=== PATIENT | male | born 1965 | race Caucasian/White ===

== ENCOUNTER 2021-11-16 10:23 | Observation (INO) | payer BC ==
--- OUTSIDE RECORDS SUMMARY | 2021-11-16 10:26 | XMS REPORT | Continuity of Care Document ---
:1965 Author Organization [facility] t Address [address] [place] [address] [address] [place] [address] Care Team Providers Name Role Phone Franklin PETERS Attending Clinician Payers Payer Name Policy Type Policy Number Effective Date Expiration Date S ource Problems Condition Condition Condition Status Onset Resolution Last Treating Co mments Source Name Details Category Date Date Treatment Clinician Date Elevated Elevated Disease Active [facility] r coronary coronary 10-13 [facility] artery artery 00:00: of calcium calcium 00 Medicin score [CAC score [CAC e score 31 score 31 age 55] age 55] Mixed Mixed Disease Active [facility] hyperlipid hyperlipid - Co llege emia emia 00:00: of 00 Medicin e Hypertrigl Hypertrigl Disease Active [facility] yceridemia yceridemia 10-13 [facility]lege 00:00: of 00 Medicin e Primary Primary Disease Active [facility] hypertensi hypertensi 10-13 [facility] on on 00:00: of 00 Medicin e Impaired Impaired Disease Active [facility] r fasting fasting 10-13 [place] glucose glucose 00:00: of 00 Medicin e Allergies, Adverse Reactions, Alerts This patient has no known allergies or adverse reactions. Social History Social Habit Start Date Stop Date Quantity Comments Source Exposure to Not sure [facility] Tiffanie leary SARS-CoV-2 of Medicine (event) Tobacco use and 2020-10-14 2020-10-14 User of smokeless [facility] exposure 00:00:00 00:00:00 tobacco of Medicine Sex Ass[birth year] At [birth year] M [facility] 00:00:00 00:00:00 of Medicine Smoking Status Start Date Stop Date Source Never smoked tobacco [facility] ege of Medicine Medications Ordered Filled Start Stop Current Ordering Indication Dosage Frequency Signature Comments Components Source Medication Medication Date Date Medication? Clinician (SIG) Name Name Icosapent Yes 2{capsu Take 2 [facility] Ethyl 1 g 6-21 le} Capsules Colleg e CAPS 10:14: by mouth of 03 two times Medicin daily. e amlodipine- Yes 1{capsu Take 1 [facility] benazepril 6-21 le} capsule by Col lege (LOTREL) 10:14: mouth of 5-20 MG per 03 daily. Medici n capsule e omeprazole Yes 40mg Take 40 mg [facility] (PRILOSEC) 6-21 by mouth Colle ge 40 MG 10:14: daily. of capsule 03 Medicin e rosuvastati 2021- No 10mg Take 10 mg Desean n (CRESTOR) 6-21 06-21 by mouth Col lege 10 MG 10:13: 00:00 daily. of tablet 10 :00 Medicin e gemfibrozil 2021- No 600mg Take 600 [facility] (LOPID) 600 -21 06-21 mg by Colleg e MG tablet 10:13: 00:00 mouth two of 07 :00 times Medicin daily. e levothyroxi Yes 1 TABLET [facility] ne 5-06 BY MOUTH College (SYNTHROID) 00:00: DAILY, 30 o f 50 MCG 00 MINUTES Medicin tablet BEFORE e BREAKFAST rosuvastati 2020-04 Yes 20mg Take 1 [facility] (CRESTOR) 1-10 Tablet by Col lege 20 MG 00:00: mouth of tablet 00 daily. Medicin e fenofibrate 2020-04 Yes 145mg Take 1 [facility] (TRICOR) 1-10 Tablet by Colleg e 145 MG 00:00: mouth of tablet 00 daily. Medicin e Icosapent Yes 2{capsu Take 2 [facility] Ethyl 1 g 6-22 le} Capsules Colleg e CAPS 10:30: by mouth of 04 two times Medicin daily. e amlodipine- Yes 1{capsu Take 1 [facility] benazepril 6-22 le} capsule by Col lege (LOTREL) 10:30: mouth of 5-20 MG per 04 daily. Medici n capsule e omeprazole Yes 40mg Take 40 mg [facility] (PRILOSEC) 6-22 by mouth Colle ge 40 MG 10:30: daily. of capsule 04 Medicin e gemfibrozil Yes 600mg Take 600 [facility] (LOPID) 600 6-22 mg by College MG tablet 10:30: mouth two of 04 times Medicin daily. e rosuvastati Yes 10mg Take 10 mg [facility] n (CRESTOR) 6-22 by mouth [facility] ege 10 MG 10:30: daily. of tablet 04 Medicin e fenofibrate Yes 145mg Take 1 [facility] (TRICOR) 6-22 Tablet by Colleg e 145 MG 00:00: mouth of tablet 00 daily. Medicin e rosuvastati Yes 20mg Take 1 [facility] (CRESTOR) 6-22 Tablet by Col lege 20 MG 00:00: mouth of tablet 00 daily. Medicin e Vital Signs Vital Name Observation Time Observation Value Comments Source Systolic blood 2021-10-13 15:10:00 133 mm[Hg] [facility] pressure Medicine Diastolic blood 2021-10-13 15:10:00 83 mm[Hg] [facility] Medicine Heart rate 2021-10-13 15:10:00 74 /min [facility] Body height 2021-10-13 15:10:00 176.5 cm [facility] Body weight 2021-10-13 15:10:00 102.059 kg [facility] BMI 2021-10-13 15:10:00 32.75 kg/m2 [facility] Systolic blood 2020-10-14 15:21:00 125 mm[Hg] [facility] pressure Medicine Diastolic blood 2020-10-14 15:21:00 81 mm[Hg] [facility] Medicine Heart rate 2020-10-14 15:21:00 66 /min [facility] Body temperature 2020-10-14 15:21:00 36.22 [facility] Body height 2020-10-14 15:21:00 175.3 cm [facility] Body weight 2020-10-14 15:21:00 97.523 kg [facility] BMI 2020-10-14 15:21:00 31.75 kg/m2 [facility] Procedures This patient has no known procedures. Plan of Care Planned Activity Planned Date Details Comments Source Future Scheduled 2021-10-17 Screening for malignant [facility] Test 19:34:57 neoplasm of colon of Medicin e (procedure) [code = 990385534] Future Scheduled 2021-10-17 COVID-19 Vaccine (#1) [facility] Test 19:34:57 [code = COVID-19 of Medicine Vaccine (#1)] Future Scheduled 2021-10-17 TETANUS SHOT (ADULT) [facility] Test 19:34:57 [code = TETANUS SHOT of Medi cine (ADULT)] Future Scheduled 2021-10-17 BMI FOLLOW UP PLAN [facility] Test 19:34:57 [code = BMI FOLLOW UP of Med icine PLAN] Future Scheduled 2021-10-17 Hepatitis C screening [facility] Test 19:34:57 (procedure) [code = of Medic ine [id number]] Future Scheduled 2021-10-17 Human immunodeficiency B [facility] Test 19:34:57 virus screening of Medicine (procedure) [code = 930606824] Future Scheduled 2021-10-17 ZOSTER VACCINE (1 of 2) [facility] Test 19:34:57 [code = ZOSTER VACCINE of Me dicine (1 of 2)] Future Scheduled 2021-10-17 FLU VACCINE > 6 MONTHS B [facility] Test 19:34:57 [code = FLU VACCINE > 6 of M edicine MONTHS] Future Scheduled 2021-10-13 LIPID PANEL [code = Ordered: [facility] Test 11:00:09 94702-9] 10/13/2021 of Medicine Future Scheduled 2021-10-13 HEMOGLOBIN A1C [code = Ordered: B [facility] Test 11:00:09 4548-4] 10/13/2021 of Medicine Future Scheduled 2021-10-13 COMPREHENSIVE METABOLIC Ordered: [facility] Test 11:00:09 PANEL [code = 79478-8] 10/13/2021 of Me dicine Future Scheduled 2020-10-17 Screening for malignant [facility] Test 15:56:57 neoplasm of colon of Medicin e (procedure) [code = 767850251] Future Scheduled 2020-10-17 COVID-19 Vaccine (1) [facility] Test 15:56:57 [code = COVID-19 of Medicine Vaccine (1)] Future Scheduled 2020-10-17 TETANUS SHOT (ADULT) [facility] Test 15:56:57 [code = TETANUS SHOT of Medi cine (ADULT)] Future Scheduled 2020-10-17 BMI FOLLOW UP PLAN [employer] [employer] Test 15:56:57 [code = BMI FOLLOW UP of Med icine PLAN] Future Scheduled 2020-10-17 Hepatitis C screening [facility] Test 15:56:57 (procedure) [code = of Medic ine 435142059] Future Scheduled 2020-10-17 Human immunodeficiency B [facility] Test 15:56:57 virus screening of Medicine (procedure) [code = 751018661] Future Scheduled 2020-10-17 ZOSTER VACCINE (1 of 2) [facility] Test 15:56:57 [code = ZOSTER VACCINE of Me dicine (1 of 2)] Future Scheduled 2020-10-17 FLU VACCINE > 6 MONTHS B [facility] Test 15:56:57 [code = FLU VACCINE > 6 of M edicine MONTHS] Future Scheduled 2020-10-14 COMPREHENSIVE METABOLIC Ordered: [facility] Test 11:27:23 PANEL [code = 79518-3] 10/14/2020 of Me dicine Future Scheduled 2020-10-14 LIPID PANEL [code = Ordered: [facility] Test 11:27:23 97834-0] 10/14/2020 of Medicine Encounters Start End Encounter Admission Attending Care Care Encounter Source Date/Time Date/Time Type Type Clinicians Facility Department ID 2021-10-13 2021-10-13 Office KAMILA Lawson [id number] [facility] 10:00:00 11:15:01 Visit Cindi AMBULATOR [id number] College Y [id number] of [id number] Medi leo 310 e 2020-10-14 2020-10-14 Office KAMILA Lawson [id number] [facility] 09:41:33 11:44:24 Visit Cindi AMBULATOR [id number] College Y [id number] [facility] 310 e 2020-10-14 2020-10-14 [facility] [id number] [place] 00:00:00 00:00:00 CINDI [address] Results This patient has no known results.
[2021-11-16] MEDS ORDERED: MORPHINE 4 MG/ML SYR ONE ×2 (11:02→17:04)
[2021-11-16] MEDS ORDERED: KETOROLAC 30 MG/ML INJ ONE (11:03)
[2021-11-16] MEDS ORDERED: NA CHLORIDE 0.9% 1,000 ML ONE (11:03)
[2021-11-16] MEDS ORDERED: ONDANSETRON 4 MG/2 ML VIAL ONE ×2 (11:03→17:04)
[2021-11-16] MEDS ORDERED: NA CHLORIDE 0.9% 50 ML ONE (11:03)
[2021-11-16] MEDS ORDERED: TAMSULOSIN 0.4 MG SR CAP ONE (11:03)
[2021-11-16] MEDS ORDERED: CEFTRIAXONE 1000 MG/VIAL ONE (11:03)
[2021-11-16 11:13] LABS: Absolute Lymphocytes (CBC) 1.3 K/uL (0.7-4.9); Lymphocytes % 20.2 % (15.3-44.8); MCV 92.4 fL (80-100); MPV 8.6 fL (7.6-11.3); RBC Red Blood Cell Count 4.65 M/uL (4.33-5.43)
--- NOTE | 2021-11-16 11:25 | RAD REPORT ---
EXAM DESCRIPTION: CT - Stone Protocol - 11/16/2021 11:05 am CLINICAL HISTORY: Flank pain, kidney stone suspected COMPARISON: No comparisons TECHNIQUE: Axial 3 mm thick images were obtained without oral or IV contrast. The [id number] span s the entirety of the system including uppermost abdomen and lung bases. All CT scans are performed using dose optimization technique as appropriate and may include automated exposure control or mA/KV adjustment according to patient size. FINDINGS: Moderate left-sided hydronephrosis is present to the mid ureter level where there is a 12 x 8 mm calcification. From a KUB projection this stone is at the level of the L4-5 disc space. Patieleni t also has a 12 millimeter x 8 millimeter calcification in the mid kidney calyx. No other left-sided calcifications. No right-sided hydronephrosis or calcifications. No suspicious renal masses. Isodense masses and pyelonephritis are not excluded on a stone protocol CT scan. No significant adrenal findi ng. No urinary bladder suspicious finding. Prostate calcifications are present. Imaged portions of the liver, spleen and pancreas show no suspicious findings on non-contrast imaging . No gallbladder or biliary tree abnormality identified. No suspicious bowel findings. Appendix is normal. No active GI process seen. Small 12 mm fat only umbilical hernia is present. Patient has a moderate size fat only left inguinal hernia No free air, free fluid or pneumatosis. No significant edema or stranding in the left perineph radha fat. No significant bony abnormality. IMPRESSION: Moderate left-sided hydronephrosis down to the mid ureter level secondary to a 12 x 8 mm obstructing calculus. Nonobstructing 12 x 8 mm calcification lateral mid left kidney. Isodense masses and pyelonephritis are not excluded on stone protocol technique.
[2021-11-16 11:28] LABS: Albumin 4.7 g/dL (3.4-5.0); Bilirubin Total 0.3 mg/dL (0.2-1.0); Potassium 4.4 mmol/L (3.5-5.1)
--- NOTE | 2021-11-16 13:02 | ER ---
Nurse's Notes [facility] Name: Castro Baires Age: 56 yrs Sex: Male : 1965 Arrival Date: 11/16/2021 Time: 10:25 Bed 17 Private MD: Diagnosis: Hydronephrosis with renal and ureteral calculous obstruction-12x8 mm left mid obstructing calculi Presentation: 11/16 10:32 Chief complaint: Patient states: he believes he has kidney stones, as he has a recent ap3 history of stones. patient is reporting left flank pain that radiates to the front of his abdomen. patient denies any difficulty urinating. Coronavirus screen: At this time, the client does not indicate any symptoms associated with coronavirus-19. Ebola Screen: No symptoms or risks identified at this time. Initial Sepsis Screen: Does the patient meet any 2 criteria? No. Patient's initial sepsis screen is negative. Does the patient have a suspected source of infection? No. Patient's initial sepsis screen is negative. Risk Assessment: Do you want to hurt yourself or someone else? Patient reports no desire to harm self or others. Onset of symptoms was November 15, 2021. 10:32 Method Of Arrival: Ambulatory ap3 10:32 Acuity: CAROLE 3 ap3 Triage Assessment: 10:38 General: Appears uncomfortable, Behavior is calm, cooperative. Pain: Complains of pain ap3 in right low back Pain radiates to abdomen Pain currently is 7 out of 10 on a pain scale. Quality of pain is described as stabbing, Pain began gradually. Neuro: Level of Consciousness is awake, alert, obeys commands, Oriented to person, place, time. Cardiovascular: Patient's skin is warm and dry. Respiratory: Airway is patent Respiratory effort is even, unlabored. GI: Patient currently denies nausea, vomiting. : Reports pain in left flank(s). Historical: - Allergies: 10:35 No Known Allergies; ap3 - Home Meds: 10:35 amlodipine oral [Active]; Vascepa oral [Active]; fenofibrate oral [Active]; Omeprazole ap3 Oral [Active]; rosuvastatin oral [Active]; amlodipine oral [Active]; levothyroxine oral [Active]; - PMHx: 10:35 Hypertensive disorder; Hypercholesterolemia; ap3 - Social history:: Smoking status: Patient reports use of chewing tobacco. Patient uses alcohol, occasionally. - Family history:: not pertinent. Screenin:39 Abuse screen: Denies threats or abuse. Nutritional screening: No deficits noted. ap3 Tuberculosis screening: No symptoms or risk factors identified. 11:56 Fall Risk None identified. jg9 Assessment: 11:00 GI: Bowel sounds present X 4 quads. Abd is soft X 4 quads Abdomen is tender to jg9 palpation in posterior aspect of right lateral abdomen, left upper quadrant and left lower quadrant. Vital Signs: 10:30 BP 156 / 96; Pulse 70; Resp 17 S; Pulse Ox 95% on R/A; Pain 9/10; jg9 10:32 BP 150 / 100; Pulse 73; Resp 19; Temp 97.8; Pulse Ox 100% ; Weight 102.06 kg; Height 5 ap3 ft. 9 in. (175.26 cm); Pain 7/10; 10:45 BP 150 / 92; Pulse 74; Resp 17 S; Pulse Ox 96% on R/A; Pain 4/10; jg9 11:50 BP 129 / 84; Pulse 55; Resp 14 S; Pulse Ox 100% on R/A; Pain 4/10; jg9 12:45 BP 139 / 84; Pulse 55; Resp 12 S; Pulse Ox 98% on R/A; Pain 4/10; jg9 10:32 Body Mass Index 33.23 (102.06 kg, 175.26 cm) ap3 ED Course: 10:25 Patient arrived in ED. rg4 10:35 Triage completed. ap3 10:39 Victor Manuel Ferris MD is Attending Physician. lamont 10:39 Arm band placed on right wrist. ap3 10:49 Mi Packer, KRISHNA is Primary Nurse. jg9 10:55 Inserted saline lock: 18 gauge in right antecubital area, using aseptic technique. jg9 Blood collected. 11:07 CT Stone Protocol In Process Unspecified. EDMS 11:13 Patient has correct armband on for positive identification. Bed in low position. Call jg9 light in reach. Side rails up X 1. 13:01 Urban Rivers MD is Hospitalizing Provider. lamont Administered Medications: 11:00 Drug: Zofran (Ondansetron) 4 mg Route: IVP; Site: right antecubital; j9 11:57 Follow up: Response: No adverse reaction; Nausea is decreased 9 11:00 Drug: morphine 4 mg Route: IVP; Infused Over: 4 mins; Site: right antecubital; jg9 11:30 Follow up: Response: No adverse reaction; Marked relief of symptoms; Pain is decreased j9 11:02 Drug: Ketorolac 30 mg Route: IVP; Site: right antecubital; jg9 11:30 Follow up: Response: No adverse reaction; Marked relief of symptoms; Pain is decreased j9 11:25 Drug: Flomax (tamsulosin) 0.4 mg Route: PO; g 11:58 Follow up: Response: No adverse reaction 11:28 Drug: NS 0.9% 1000 ml Route: IV; Rate: 1 bolus; Site: right antecubital; jg9 13:00 Follow up: IV Status: Completed infusion; IV Intake: 1000ml 9 11:28 Drug: Rocephin (cefTRIAXone) 1 grams Route: IV; Rate: per protocol; Site: right [facility] antecubital; 12:59 Follow up: IV Status: Completed infusion; IV Intake: 50ml g9 Intake: 12:59 IV: 50ml; Total: 50ml. g9 13:00 IV: 1000ml; Total: 1050ml. jg9 Outcome: 13:01 Decision to Hospitalize by Provider. lamont 21:16 Patient left the ED. lp1 Signatures: Dispatcher [employer] EDMS Victor Manuel Ferris MD MD cha Pena, Laura RN RN lp1 Crystal Solis4 Sheila Castillo RN RN ap3 Mi Packer RN RN jg9 Corrections: (The following items were deleted from the chart) 12:58 11:50 BP 129 / 84; Pulse 55bpm; Resp 14bpm; Spontaneous; Pulse Ox 100% RA; jg9 jg9
--- NOTE | 2021-11-16 13:03 | EDPHYS ---
Physician Documentation [facility] Name: Castro Baires Age: 56 yrs Sex: Male : 1965 Arrival Date: 11/16/2021 Time: 10: Bed 17 Private MD: Victor Manuel Woods HPI: 11/16 12:57 This 56 yrs old Male presents to ER via Ambulatory with complaints of lamont Possible Kidney Stone. 12:57 The patient presents with abdominal pain in the lower abdomen, in the left lower lamont quadrant. Onset: The symptoms/episode began/occurred 2 day(s) ago. The patient complains of pain in the left low back and left mid back. The pain radiates to the left low back and left mid back. Onset: The symptoms/episode began/occurred 2 day(s) ago. Modifying factors: The symptoms are alleviated by nothing. the symptoms are aggravated by nothing. Associated signs and symptoms: The patient has no apparent associated signs or symptoms. The symptoms do not radiate. The symptoms are described as sharp. Historical: - Allergies: 10:35 No Known Allergies; ap3 - Home Meds: 10:35 amlodipine oral [Active]; Vascepa oral [Active]; fenofibrate oral [Active]; Omeprazole ap3 Oral [Active]; rosuvastatin oral [Active]; amlodipine oral [Active]; levothyroxine oral [Active]; - PMHx: 10:35 Hypertensive disorder; Hypercholesterolemia; ap3 - Social history:: Smoking status: Patient reports use of chewing tobacco. Patient uses alcohol, occasionally. - Family history:: not pertinent. ROS: 12:57 Constitutional: Negative for fever, chills, and weight loss, Eyes: Negative for injury, lamont pain, redness, and discharge, ENT: Negative for injury, pain, and discharge, Neck: Negative for injury, pain, and swelling, Cardiovascular: Negative for chest pain, palpitations, and edema, Respiratory: Negative for shortness of breath, cough, wheezing, and pleuritic chest pain, : Negative for injury, bleeding, discharge, and swelling, MS/Extremity: Negative for injury and deformity, Skin: Negative for injury, rash, and discoloration, Neuro: Negative for headache, weakness, numbness, tingling, and seizure, Psych: Negative for depression, anxiety, suicide ideation, homicidal ideation, and hallucinations, Allergy/Immunology: Negative for hives, rash, and allergies, Endocrine: Negative for neck swelling, polydipsia, polyuria, polyphagia, and marked weight changes, Hematologic/Lymphatic: Negative for swollen nodes, abnormal bleeding, and unusual bruising. 12:57 Abdomen/GI: Positive for abdominal pain, of the anterior aspect of left lateral abdomen, posterior aspect of left lateral abdomen, left upper quadrant and left lower quadrant. Exam: 12:57 Constitutional: This is a well developed, well nourished patient who is awake, alert, lamont and in no acute distress. Head/Face: Normocephalic, atraumatic. Eyes: Pupils equal round and reactive to light, extra-ocular motions intact. Lids and lashes normal. Conjunctiva and sclera are non-icteric and not injected. Cornea within normal limits. Periorbital areas with no swelling, redness, or edema. ENT: Nares patent. No nasal discharge, no septal abnormalities noted. Tympanic membranes are normal and external auditory canals are clear. Oropharynx with no redness, swelling, or masses, exudates, or evidence of obstruction, uvula midline. Mucous membranes moist. Neck: Trachea midline, no thyromegaly or masses palpated, and no cervical lymphadenopathy. Supple, full range of motion without nuchal rigidity, or vertebral point tenderness. No Meningismus. Chest/axilla: Normal chest wall appearance and motion. Nontender with no deformity. No lesions are appreciated. Cardiovascular: Regular rate and rhythm with a normal S1 and S2. No gallops, murmurs, or rubs. Normal PMI, no JVD. No pulse deficits. Respiratory: Lungs have equal breath sounds bilaterally, clear to auscultation and percussion. No rales, rhonchi or wheezes noted. No increased work of breathing, no retractions or nasal flaring. Abdomen/GI: Soft, non-tender, with normal bowel sounds. No distension or tympany. No guarding or rebound. No evidence of tenderness throughout. Male : Normal genitalia with no discharge or lesions. Skin: Warm, dry with normal turgor. Normal color with no rashes, no lesions, and no evidence of cellulitis. MS/ Extremity: Pulses equal, no cyanosis. Neurovascular intact. Full, normal range of motion. Neuro: Awake and alert, GCS 15, oriented to person, place, time, and situation. Cranial nerves II-XII grossly intact. Motor strength 5/5 in all extremities. Sensory grossly intact. Cerebellar exam normal. Normal gait. Psych: Awake, alert, with orientation to person, place and time. Behavior, mood, and affect are within normal limits. 12:57 Back: pain, that is mild, ROM is normal, normal spinal alignment noted, CVA tenderness, that is mild, is noted on the left. Vital Signs: 10:30 BP 156 / 96; Pulse 70; Resp 17 S; Pulse Ox 95% on R/A; Pain 9/10; jg9 10:32 BP 150 / 100; Pulse 73; Resp 19; Temp 97.8; Pulse Ox 100% ; Weight 102.06 kg; Height 5 ap3 ft. 9 in. (175.26 cm); Pain 7/10; 10:45 BP 150 / 92; Pulse 74; Resp 17 S; Pulse Ox 96% on R/A; Pain 4/10; jg9 11:50 BP 129 / 84; Pulse 55; Resp 14 S; Pulse Ox 100% on R/A; Pain 4/10; jg9 12:45 BP 139 / 84; Pulse 55; Resp 12 S; Pulse Ox 98% on R/A; Pain 4/10; jg9 10:32 Body Mass Index 33.23 (102.06 kg, 175.26 cm) ap3 MDM: 10:39 Patient medically screened. [facility] 11/16 10:45 Order name: CBC with Diff; Complete Time: 11:39 [facility] 11/16 10:45 Order name: CMP; Complete Time: 11:39 [facility] 11/16 10:45 Order name: Lipase; Complete Time: 11:39 [facility] 11/16 10:45 Order name: Urine Culture [facility] 11/16 12:40 Order name: SARS RAPID bd 11/16 13:06 Order name: Urine Dipstick-Ancillary [facility] 11/16 13:13 Order name: Basic Metabolic Panel [facility] 11/16 13:13 Order name: Basic Metabolic Panel [facility] 11/16 13:13 Order name: CBC with Automated Diff [facility] 11/16 13:13 Order name: CBC with Automated Diff [facility] 11/16 13:13 Order name: Lipase [facility] 11/16 13:13 Order name: Lipase [facility] 11/16 13:13 Order name: Liver (Hepatic) Function [facility] 11/16 13:13 Order name: Liver (Hepatic) Function [facility] 11/16 10:45 Order name: IV Saline Lock; Complete Time: 11:13 [facility] 11/16 10:45 Order name: Labs collected and sent; Complete Time: 11:13 [facility] 11/16 10:45 Order name: CT Stone Protocol; Complete Time: 11:39 [facility] 11/16 13:00 Order name: Chest Single View XRAY [facility] 11/16 13:00 Order name: EKG; Complete Time: 13:01 [facility] 11/16 13:00 Order name: EKG - Nurse/Tech [facility] 11/16 13:13 Order name: CONS Physician Consult [facility] 11/16 13:13 Order name: NPO [facility] 11/16 14:26 Order name: RAD [facility] Administered Medications: 11:00 Drug: Zofran (Ondansetron) 4 mg Route: IVP; Site: right antecubital; jg9 11:57 Follow up: Response: No adverse reaction; Nausea is decreased j9 11:00 Drug: morphine 4 mg Route: IVP; Infused Over: 4 mins; Site: right antecubital; jg9 11:30 Follow up: Response: No adverse reaction; Marked relief of symptoms; Pain is decreased j9 11:02 Drug: Ketorolac 30 mg Route: IVP; Site: right antecubital; jg9 11:30 Follow up: Response: No adverse reaction; Marked relief of symptoms; Pain is decreased j9 11:25 Drug: Flomax (tamsulosin) 0.4 mg Route: PO; jg9 11:58 Follow up: Response: No adverse reaction jg9 11:28 Drug: NS 0.9% 1000 ml Route: IV; Rate: 1 bolus; Site: right antecubital; jg9 13:00 Follow up: IV Status: Completed infusion; IV Intake: 1000ml jg9 11:28 Drug: Rocephin (cefTRIAXone) 1 grams Route: IV; Rate: per protocol; Site: right jg9 antecubital; 12:59 Follow up: IV Status: Completed infusion; IV Intake: 50ml jg9 Disposition Summary: 11/16/21 13:01 Hospitalization Ordered Hospitalization Status: Observation lamont Provider: Rivers, A lamont Location: Telemetry/MedSurg (observation) lamont Condition: Stable lamont Problem: new lamont Symptoms: have improved lamont Bed/Room Type: Standard lamont Room Assignment: 230(11/16/21 19:57) cg Diagnosis - Hydronephrosis with renal and ureteral calculous obstruction - 12x8 mm left mid lamont obstructing calculi Forms: - Medication Reconciliation Form lamont - SBAR form lamont Signatures: Dispatcher [employer] Victor Manuel Medina MD MD cha Garcia, Cindy RN RN Sheila Lee RN RN ap3 Mi Packer RN RN jg9 Corrections: (The following items were deleted from the chart) 19:57 13:01 lamont cg
[2021-11-16 13:05] LABS: Urine Specific Gravity 1.015 (1.005-1.030)
[2021-11-16 13:06] LABS: Urine Blood 1+ (Negative); Urine Glucose Negative (Negative); Urine Protein Negative (Negative); Urine pH 5.5 (5.0-7.0)
[2021-11-16] MEDS ORDERED: ONDANSETRON 4 MG/2 ML VIAL IV PRN (13:06)
[2021-11-16] MEDS ORDERED: ACETAMINOPHEN 325 MG TABLET PO PRN (13:06)
[2021-11-16] MEDS: Ringers Lactate 1,000 ML IV SCH (14:00)
--- NOTE | 2021-11-16 14:25 | RAD REPORT ---
EXAM DESCRIPTION: RAD - Chest Single View - 11/16/2021 1:45 pm CLINICAL HISTORY: COUGH COMPARISON: None TECHNIQUE: AP portable chest image was obtained 11/16/2021 1:45 pm . FINDINGS: Lung volumes are low. No acute lung parenchymal process seen. Heart and vasculature are no rmal. No measurable pleural effusion and no pneumothorax. No acute bony abnormality seen. No acute ao rtic findings suspected. IMPRESSION: No acute cardiopulmonary process.
[2021-11-16 14:55] LABS: SARS-CoV-2 Antigen Rapid Res Negative (Negative)
[2021-11-16] MEDS: MORPHINE 4 MG/ML SYR IV PRN (17:04)
[2021-11-16] MEDS ORDERED: Ringers Lactate 1,000 ML IV ONE (17:07)
[2021-11-16 18:00] VITALS: BMI 33.2
[2021-11-16] MEDS: TAMSULOSIN 0.4 MG SR CAP PO SCH (22:42)
[2021-11-17] MEDS: Ringers Lactate 1,000 ML IV SCH ×3 (04:29→18:07)
--- NOTE | 2021-11-17 05:52 | HP ---
Date of Admission: 11/16/2021 Chief Complaint: Abdominal pain. History Of Present Illness: This is a 56-year-old very pleasant male patient who was doing fine in h is normal usual state of health until last night, started to have left-sided abdominal pain. After a while, his pain got better so he was able to go to sleep and when he woke up this morning he started to have this abdominal pain in the left lower quadrant and then he started to have pain in the left lateral and left posterior flank region. He denies any fever, chills, nausea, vomiting. No dysuria. No hematuria. No fever. No chills. With this worsening pain, he came into ER and after he was ev aluated he was admitted to the hospital with left-sided kidney stone and also stone in his left urete r with hydronephrosis. The patient received pain medication in the emergency room so when I saw him in the ER this evening, he was comfortable. Urology consultation from Dr. Colorado has been requested . Allergies: NO KNOWN ALLERGIES. Medications: Amlodipine/benazepril 5/20 mg 1 capsule daily, fenofibrate 145 mg daily, fluticasone na alvin spray 2 spray each nostril 2 times a day, Vascepa 1000 mg takes 2 capsules 2 times a day, levocet irizine 5 mg daily at bedtime, levothyroxine 50 mcg daily, omeprazole 40 mg daily, rosuvastatin 40 mg daily. Review of Systems: GI: As mentioned above. Genitourinary: As mentioned above. All other systems reviewed and negative. Past Medical History: Significant for hypothyroidism, hypertension, mixed hyperlipidemia, gastroesop hageal reflux disease, and gout. Past Surgical History: Hernia repair and right arm surgery. Family History: Father , had coronary artery disease, hypertension, diabetes, hyperlipidemia, an d Waldenstrom's macroglobulinemia. Mother has hypertension, diabetes, and hyperlipidemia. Brother h as diabetes. Sister with hyperlipidemia. Social History: Significant for and use of alcohol, 1 or 2 beers . Physical Examination: Vital Signs: Height 5 feet 9 inches, weight 225 pounds, temperature , pulse , re spiratory rate , blood pressure , oxygen saturation . General: Awake, alert, oriented, not in distress. HEENT: Head atraumatic, normocephalic. Conjunctivae nonerythematous. Sclerae white. Mouth, no thr ush or edema noted. Ears/Nose, no mass, lesion, discharge noted. Neck: Supple. No JVD, lymph nodes, bruit, thyromegaly noted. Lungs: Bilateral good equal air entry. Clear to auscultation. No rhonchi. No rales. Heart: Normal heart sounds, no murmur or gallop. Abdomen: Soft, bowel sounds normal. No guarding, rigidity, tenderness, mass, hepatosplenomegaly, dis tention, or bruit noted. Extremities: No leg edema. No calf tenderness. Skin: No rash, ulcer, cellulitis. Lymphatics: No lymph node enlargement in neck, supraclavicular, infraclavicular region. Neuro: No focal neurological deficit. Chest: Unremarkable. External Genitalia: Deferred. Rectal: Deferred. Laboratory Data: White count 6.3, hemoglobin 14.6, platelets 236. Sodium 136, potassium 4.4, chlori de 107, bicarb 24, BUN 22, creatinine 1.30, glucose 108. Liver function tests unremarkable. Lipase 155. COVID-19 test negative. Urinalysis 1+ blood, otherwise negative. CAT scan of the abdomen per kidney stone protocol shows moderate left-sided hydronephrosis with 12 x 8 mm stone in the left mid u reter causing obstruction and there is a known obstructing 12 x 8 mm stone in the mid left kidney. C hest x-ray unremarkable. Impression: 1.Left ureteric stone with hydronephrosis. 2.Left kidney stone. 3.Hypertension. 4.Mixed hyperlipidemia. 5.Gastroesophageal reflux disease. 6.Hypothyroidism. Plan: We will go ahead and admit the patient to hospital for further evaluation and management of th is problem. The patient is appropriate for inpatient and is expected to spend 2 midnights in the [facility]. We will order SCD for DVT prophylaxis. Continue IV fluid. Continue pain medication and empi radha antibiotics per order. Urologist, Dr. Colorado, was consulted from emergency room. We will keep the patient n.p.o. after midnight for surgical intervention that Dr. Colorado might plan to do it danuat rrow morning and details and plan of treatment discussed with the patient. I will see him tomorrow m orning for followup. ORI/EL Voice ID: [id number]
[2021-11-17 06:02] LABS: Absolute Lymphocytes (CBC) 1.3 K/uL (0.7-4.9); Hematocrit 37.9 % (39.6-49.0); Lymphocytes % 28.3 % (15.3-44.8); MCV 92.1 fL (80-100); MPV 8.3 fL (7.6-11.3); RBC Red Blood Cell Count 4.12 M/uL (4.33-5.43)
[2021-11-17 06:17] LABS: Albumin 3.7 g/dL (3.4-5.0); Bilirubin Direct 0.1 mg/dL (0-0.2); Bilirubin Total 0.3 mg/dL (0.2-1.0); Potassium 4.5 mmol/L (3.5-5.1); Protein, Total 6.5 g/dL (6.4-8.2)
[2021-11-17] MEDS ORDERED: PANTOPRAZOLE 40MG TABLET PO SCH (06:30)
[2021-11-17] MEDS ORDERED: LEVOTHYROXINE SOD 0.05 MG TABLET PO SCH (06:30)
[2021-11-17] MEDS ORDERED: CEFTRIAXONE 1000 MG/VIAL ONE (08:20)
[2021-11-17] MEDS ORDERED: CEFTRIAXONE 1,000 MG in NA CHLORIDE 0.9% 50 ML IVPB SCH (09:00)
[2021-11-17] MEDS ORDERED: BENAZEPRIL 20 MG TAB PO SCH ×2 (09:00)
[2021-11-17] MEDS ORDERED: AMLODIPINE 5 MG TAB PO SCH ×2 (09:00)
--- NOTE | 2021-11-17 10:53 | P.CNS ---
Date of Consult: 11/17/21 Reason for Consult: left nephroureterolithiasis Requesting Physician: Rian Rivers Chief Complaint: left flank pain History of Present Illness: 56-year-old gentleman with hypertension and hyperlipidemia, who has passed kidney stones on at least 2 prior occasions over the last 10 to 20 years, presents with left flank and left lower quadrant pain that began yesterday. The pain was severe enough that eventually he presented to the emergency department where he was evaluated. He denied any associated fever or chills, and he denied any nausea, vomiting. He also complains of some right flank pain of uncertain etiology. Family history: No history of urologic malignancy Social history: Remote childhood smoking experience Examination: Afebrile and vital signs stable Alert, awake, oriented x3 in no acute distress No dyspnea or sign of respiratory distress Comfortable and well-appearing Abdomen soft, nontender, nondistended No CVA tenderness elicited Lying in hospital bed Review of his laboratory analyses revealed normal white blood count, platelets and creatinine. CT scan reviewed: Approximately 12 mm left nephrolithiasis associated with 9 to 10 mm left mid distal ureterolithiasis and hydroureteronephrosis Assessment and recommendation: 56-year-old gentleman with hypertension and hyperlipidemia, recurrent stone former, now with 9 to 10 mm left mid distal ureterolithiasis causing hydroureteronephrosis and left flank pain associated with an approximately 12 mm and left nephrolithiasis. -Patient admitted and n.p.o. -chest x-ray completed and reviewed -ekg -Recommended cystoscopy and left ureteral stent placement given the stone burden with delayed definitive management. -We will assess for visibility of the stones to see if he may be a potential candidate for ESWL -Will benefit from metabolic stone profile assessment done postoperatively Allergies No Known Allergies Allergy (Verified 11/16/21 16:29) Home Medications: Amlodipine/Atorvastatin [Amlodipine-Atorvast 5-20 mg] 1 tab PO DAILY 11/16/21 Fenofibrate [Tricor*] 145 mg PO DAILY 11/16/21 Icosapent Ethyl [Vascepa] 1 gm PO BID 11/16/21 Levothyroxine Sodium [Levothyroxine] 1 tab PO DAILY 11/16/21 Omeprazole [Prilosec] 40 mg PO DAILY 11/16/21 Rosuvastatin Calcium 20 mg PO DAILY 11/16/21 - Past Medical/Surgical History Diabetic: No -: HTN -: HYPERLIPIDEMIA -: GERD -: HYPOTHYROIDISM -: R BICEP REPAIR -: INGUINAL HERNIA RIGHT - Social History Smoking Status: Former smoker Physical Examination Temp Pulse Resp BP Pulse Ox 98.2 F 75 16 124/74 95 11/17/21 08:00 11/17/21 08:45 11/17/21 08:00 11/17/21 08:45 11/17/21 08:00 Laboratory Data (last 24 hrs) 11/16/21 11:00: Sodium 136, Potassium 4.4, BUN 22 H, Creatinine 1.30, Glucose 108 H, Total Bilirubin 0.3, AST 24, ALT 26, Alkaline Phosphatase 91, Lipase 155 11/16/21 11:00: WBC 6.3, Hgb 14.6, Hct 43.0, Plt Count 233
--- NOTE | 2021-11-17 12:38 | EKG ---
Test Date: 2021-11-16 Test Time: 14:53:36 Plush Dresser: ROSA MEASUREMENT RESULTS: Intervals: Rate: 72 IA: 164 QRSD: 94 QT: 410 QTc: 448 [place]: P: 4 IA: 164 QRS: 50 T: 4 INTERPRETIVE STATEMENTS: Normal sinus rhythm Normal ECG Compared to ECG 03/12/2008 01:48:00 Sinus bradycardia no longer present Electronically Signed On 11-17-21 12:37:08 CDT by Vitor Peralta
[2021-11-17] MEDS ORDERED: Ringers Lactate 1,000 ML IV ONE (14:32)
[2021-11-17] MEDS ORDERED: FENTANYL CITR 100 MCG/2 ML ONE (15:25)
[2021-11-17] MEDS ORDERED: LIDOCAINE 1% MPF 5 ML VIAL ONE (15:25)
[2021-11-17] MEDS ORDERED: MIDAZOLAM HCL 2 MG/2 ML INJ ONE (15:25)
[2021-11-17] MEDS ORDERED: propofoL 200 MG/20 ML VIAL IV ONE (15:25)
[2021-11-17] MEDS ORDERED: dexAMETHasone 10 MG/ML VIAL ONE (16:00)
[2021-11-17] MEDS ORDERED: KETOROLAC 30 MG/ML INJ ONE (16:00)
[2021-11-17] MEDS ORDERED: ONDANSETRON 4 MG/2 ML VIAL ONE (16:00)
--- NOTE | 2021-11-17 16:16 | RAD REPORT ---
EXAM DESCRIPTION: RAD - Urethrocystogrphy Retrograde - 11/17/2021 4:05 pm FINDINGS: There were 6 portable KUB images obtained during fluoroscopic assisted placement of a left ureteral stent. No suspicious or unexpected finding on the submitted images. Fluoro time was 9 seconds.
[2021-11-17] MEDS: MORPHINE 4 MG/ML SYR IV PRN (17:54)
--- NOTE | 2021-11-17 18:46 | P.PN ---
Date of Service: 11/17/21 Postop note and consultation: I met with the patient and his postoperatively in their inpatient room. He expressed having some discomfort associated with a sense of constipation or needing to have a bowel movement. He had just been given a dose of morphine. CT scan reviewed and stones noted to be greater than 1500 Hounsfield units, suggestive of stones potentially too hard for ESWL. Recommendation: Left ureteroscopy with laser lithotripsy and stent exchange -I counseled the patient and his on the recommendation and explained the procedure in detail. I also explained the unique risks of the procedure to include infection/sepsis, ureteral injury, and I discussed the risk of stricture disease, which is more likely associated with impaction of the stone. Other risks of urethral stricture, bleeding and infection were also discussed. I explained that we would typically allow at least 1 to 2 weeks for dilation of the ureter to occur with the presence of the stent before we would plan ureteroscopic intervention. -He will be scheduled accordingly within the coming weeks. My office will contact him to schedule. -Discharge instructions entered, and I recommended the patient and his try to pick out hand her pain medicine before [facility] closes tonight; so this will not be an issue. Approximately 10 to 15 minutes counseling time spent
[2021-11-17] MEDS ORDERED: HYDROCODONE/APAP 5/325 MG TAB PO PRN (18:54)
[2021-11-17] MEDS: TAMSULOSIN 0.4 MG SR CAP PO SCH (20:24)
[2021-11-17 20:37] VITALS: BP 128/74; TEMP 97.8
[2021-11-17 21:31] VITALS: O2SAT 97
--- NOTE | 2021-11-18 08:21 | DS ---
Date of Discharge: 11/17/2021 The patient was seen this morning for followup. No new complaints or problems reported by him. Silvino es any abdominal pain. No nausea. No vomiting. Physical Examination: Vital Signs: Reviewed. HEENT: Unremarkable. Lungs: Clear to auscultation. Heart: Sounds normal. Abdomen: Soft. Bowel sounds normal. No guarding, rigidity, tenderness, distention. Extremities: No leg edema. Laboratory Data: Today; white count 4.6, hemoglobin 13.1, platelets . Sodium 137, potassi um 4.5, chloride 108, bicarb 25, BUN 22, creatinine 1.24, glucose 97. Liver function tests unremarka ble. Lipase 137. Hospital Course: This is 56-year-old pleasant male patient, who was admitted to the hospital with le ft-sided abdominal pain. Please see dictated H and P for more information. The patient came into em ergency room yesterday with abdominal pain and after he was evaluated in the emergency room, he was a dmitted to the hospital with left-sided kidney stone and left-sided ureteric stone causing moderate h ydronephrosis. This stone is 12 x 8 mm in size and it was in the mid ureter causing moderate hydrone phrosis, another stone was of same size in the left kidney. After he came into ER, he was evaluated and admitted to the hospital. Urology consultation was obtained from Dr. Colorado. The patient was k ept n.p.o. after midnight and empiric antibiotics and pain medication were given. He was also starte d on tamsulosin. Today, Dr. Colorado took him to surgery and he did place left ureter stent and perfo rmed lithotripsy and the patient was discharged to go home after the procedure. From Urology point o f view, medically he is stable for discharge. Dr. Colorado did send a prescription for tamsulosin to his pharmacy along with Tylenol with Codeine and this prescription was sent to [facility] in [place] a nd late this evening around 9 p.m., nurse contacted me from the floor that the patient is ready for d ischarge, but unfortunately [facility] in [place] does not have this pain medication, which is Tylenol with Codeine, which was sent by Dr. Colorado and nurses have left a message for Dr. Colorado, but wait ing on the response back from him and the patient wants to go home, but he does not want to go home w ithout pain medications. So, I did send a prescription for Tylenol with Codeine to [facility] after verifying that the patient never picked up or was never able to get prescription for the simila r medication, which was prescribed by Dr. Colorado as that medication was not available at [facility] ___ if it is a controlled substance. [facility] will not be able to get that prescription transferred. So, I have sent a prescription for Tylenol with Codeine #20 tablets, 1 tablet 3 times a day as needed for pain. The patient to have follow up with Dr. Colorado as per his instruction. I will see him next week for followup on Tuesday and the patient will call office for this appointment. The patient was instructed not to drive car or operate any hazardous machines after taking this vikram n medication. Final Diagnoses: 1.Left ureter stone with hydronephrosis. 2.Left kidney stone. 3.Hypertension. 4.Mixed hyperlipidemia. 5.Gastroesophageal reflux disease. ORI/MODL Voice ID: [id number] Report ID: [id number]
--- NOTE | 2021-11-18 08:33 | OP ---
Surgeon: ELIAS CHIU Preoperative Diagnoses: 1.Left nephroureterolithiasis. 2.Left flank pain. 3.Left hydronephrosis. Postoperative Diagnoses: 1.Left nephroureterolithiasis. 2.Left flank pain. 3.Left hydronephrosis. Principal Procedures: 1.Cystoscopy and left retrograde pyelography. 2.Left ureteral stent placement. Indication For Procedure: Mr. Baires presented to the Emergency Department yesterday with pain associa lily with obstruction from a left ureteral calculus. The stone in the ureter was about 9-10 mm and he had an additional larger than 12 mm calculus in the left kidney. As a result, he was counseled on t he need for definitive management of both and recommended for stent placement. I counseled the patie nt that attempt at direct ureteroscopy or ureteroscopic management today would be ill advised, given the large volume of stone burden and the risk of ureteral injury in the process. Also, the likelihoo d of impaction of the stone prohibiting ureteroscopy was high as I had already counseled the patient on the potential need for percutaneous nephrostomy tube placement in 5% of cases. Further, the risks of infection and sepsis, while unlikely here would be minimized by proper preoperative preparation i ncluding culture results. Procedure In Detail: The patient was consented in the preoperative holding area before being transfe rred to operative suite where general anesthesia was induced. He was on ceftriaxone IV antimicrobial prophylaxis and Pneumoboots were provided for DVT prophylaxis. He was placed in the lithotomy posit ion, padded and secured to the table appropriately. His genitalia were prepped using Hibiclens and h e was draped in standard fashion. The case was begun using a 22-Malagasy rigid cystoscope to traverse the urethra and into the bladder. There was evidence of an elevated bladder neck and intravesical pr ojection consistent with BPH along with lateral lobar hypertrophy. The trigone was orthotopic in loc ation and the ureteral orifices were visualized. I cannulated the left ureteral orifice using the ti p of the Sensor wire and a 5-Malagasy ureteral access catheter. I then performed a retrograde pyelogra m. Left retrograde pyelography: Using a 70:30 mixture of Omnipaque and saline, contrast was injected vi a the 5-Malagasy ureteral access catheter and did propagate up the ureter around a radiopaque stone tereza t was evident in the mid ureter, consistent with the 10 mm ureteral calculus before entering the chiara l pelvis and calyces associated with the previously observed 12 mm renal calculus on the left side. Since both were radiopaque, he would be a reasonable candidate for ESWL down the line. I then passed the Sensor wire beyond the stone and visualized a coil within the upper pole of the kidney. Over th e Sensor wire, I was able to navigate a 6-Malagasy x 26 cm double-J ureteral stent with some resistance getting that stent past the stone, which evidently had a degree of impaction. I was, however, able to navigate the stent beyond the stone and coil it within the upper pole of the kidney as evidenced f luoroscopically. An additional coil was formed cystoscopically within the bladder. I then decompres sed his bladder of fluid and urine, and removed the cystoscope. He was then taken out of the lithoto my position, transferred to a stretcher, and then transferred to the recovery room in good condition. Complications: None. Discharge Disposition: He should follow up in the Urology Clinic to discuss the next steps in manage ment. He will have option for either shockwave lithotripsy of both stones or ureteroscopy with laser lithotripsy. Since the stones are radiopaque, if the Hounsfield units on CT is less than 1000, he l ikely will respond adequately to ESWL. BRODERICK/BREANNAL Voice ID: [id number] Report ID: [id number]
== END 2021-11-17 22:09 | disposition home or self-care (01) ==
LOC: ER 10:23 → OBSVTOIN 13:03 → INTOOBSV 13:03 → ERHOLD 13:03 → 2ND 20:56 → OBSVTOIN 21:47 → INTOOBSV 21:47
PROVIDERS: ADMIT Internal Medicine; ATTEND Internal Medicine
PROC: BT1F1ZZ Fluoroscopy of Left Kidney, Ureter and Bladder using Low Osmolar Contrast (ICD-10-PCS; 2021-11-17)
PROC: 0T778DZ Dilation of Left Ureter with Intraluminal Device, Via Natural or Artificial Opening Endoscopic (ICD-10-PCS; principal; 2021-11-17 15:30)
DX: N13.2 Hydronephrosis with renal and ureteral calculous obstruction (principal); I10 Essential (primary) hypertension; E78.2 Mixed hyperlipidemia; K21.9 Gastro-esophageal reflux disease without esophagitis; E03.9 Hypothyroidism, unspecified; M10.9 Gout, unspecified; F17.220 Nicotine dependence, chewing tobacco, uncomplicated; Z79.899 Other long term (current) drug therapy; Z20.822 Contact with and (suspected) exposure to COVID-19; Z82.49 Family history of ischemic heart disease and other diseases of the circulatory system; Z83.3 Family history of diabetes mellitus
CPT/HCPCS: 52332; 52005; 96365; 93005; 87088; 85025 ×2; 87086; 80048; 36415; 80076; 81003; 83690 ×2; 80053; 76377; 74176; 71045; 74450; 51610; 96375; 99284; 96366; 87811; J2704; J2250; J3010; J1100; G0378 ×4; J7120 ×3; J7030; J2405 ×3

== ENCOUNTER 2021-12-15 06:17 | Day surgery (SDC) | payer BC ==
[2021-12-11 11:40] LABS: Protime INR 1.1
[2021-12-11 12:19] LABS: SARS-CoV-2 Antigen Rapid Res Negative (Negative)
[2021-12-15] MEDS: Ringers Lactate 1,000 ML IV ONE ×2 (06:38→07:30)
[2021-12-15] MEDS ORDERED: Gentamicin Inj 220 MG in NA CHLORIDE 0.9% 100 ML IV SCH (07:00)
[2021-12-15] MEDS ORDERED: AMPICILLIN SODIUM 2 GM in NA CHLORIDE 0.9% 100 ML IVPB SCH (07:00)
[2021-12-15] MEDS ORDERED: MIDAZOLAM HCL 2 MG/2 ML INJ ONE (07:35)
[2021-12-15] MEDS ORDERED: ROCURONIUM 50 MG/5 ML VIAL IV ONE (07:35)
[2021-12-15] MEDS ORDERED: FENTANYL CITR 100 MCG/2 ML ONE (07:35)
[2021-12-15] MEDS ORDERED: ONDANSETRON 4 MG/2 ML VIAL ONE (07:35)
[2021-12-15] MEDS ORDERED: LIDOCAINE 1% MPF 5 ML VIAL ONE (07:35)
[2021-12-15] MEDS ORDERED: propofoL 200 MG/20 ML VIAL IV ONE (07:35)
[2021-12-15] MEDS ORDERED: HYDROCODONE/APAP 5/325 MG TAB PO PRN (07:41)
[2021-12-15] MEDS ORDERED: PHENAZOPYRIDINE 100MG TAB PO ONE ×2 (07:41→10:17)
[2021-12-15] MEDS ORDERED: dexAMETHasone 10 MG/ML VIAL ONE (08:06)
[2021-12-15] MEDS ORDERED: GLYCOPYRROLATE 0.2 MG/ML SYR ONE ×2 (08:59)
[2021-12-15] MEDS ORDERED: NEOSTIGMINE 1 MG/ML -10 ML VIAL ONE (09:00)
[2021-12-15] MEDS ORDERED: KETOROLAC 30 MG/ML INJ ONE (09:03)
[2021-12-15] MEDS: HYDROMORPHONE HCL 1 MG/ML INJ ONE ×2 (09:29→09:35)
--- NOTE | 2021-12-15 09:43 | RAD REPORT ---
EXAM DESCRIPTION: RAD - Urethrocystogrphy Retrograde - 12/15/2021 9:00 am CLINICAL HISTORY: LT STENT COMPARISON: Urethrocystogrphy Retrograde dated 11/17/2021 FINDINGS/IMPRESSION: Fourteen intraoperative fluoroscopic images were submitted showing cannulation of the left ureter and placement of a ureteral stent. A stone overlies the left kidney. Fluoro time: 0.31 minutes
[2021-12-15 09:44] VITALS: TEMP 97.3; O2SAT 98
[2021-12-15] MEDS ORDERED: HYDROCODONE/APAP 5/325 MG TAB ONE (10:17)
--- NOTE | 2021-12-15 11:42 | OP ---
Surgeon: ELIAS CHIU Preoperative Diagnoses: Left nephroureterolithiasis, 12.5 mm nephrolithiasis with 10 mm proximal ure terolithiasis. Postoperative Diagnoses: Left nephroureterolithiasis, 12.5 mm nephrolithiasis with 10 mm proximal ur eterolithiasis. Principle Procedures: 1.Cystoscopy. 2.Left ureteroscopy with pyeloscopy. 3.Laser lithotripsy of ureteral and renal calculus. 4.Stone basketing. 5.Left ureteral stent exchange. Indication For Procedure: Mr. Ferreira presented to the emergency department with an obstructing stone and underwent left ureteral stent placement. He presents today for definitive management of his ston es. Procedure In Detail: The patient was consented in the preoperative holding area before being transfe rred to operative suite where general anesthesia was induced. He was given ampicillin 2 g and gentam icin 240 mg IV antimicrobial prophylaxis and pneumo boots were provided for DVT prophylaxis. He was placed in lithotomy position, padded and secured to the table appropriately and his genitalia were pr epped using Hibiclens. He was draped in standard fashion, and the case was begun using a 22-Canadian r igid cystoscope to traverse the urethra and into the bladder with ease. The left ureteral stent was noted to emanate from the left ureteral orifice, and after the bladder was decompressed of urine and refilled with sterile saline, the stent was grasped and the bladder was decompressed as the stent was delivered to the meatus leaving the proximal tip of the stent in the proximal ureter as observed flu oroscopically. I was then able to pass a Sensor wire via the stent and coiled the putative upper amber e of the kidney. Leaving the Sensor wire in place, I then removed the cystoscope and performed semi- rigid direct vision ureteroscopy using pressurized normal saline as irrigant and traversed the urethr a entering the left ureteral orifice and navigating up the distal end to the mid ureter before encoun tering the 10 mm ureteral calculus there. Then, using a 200 nanometer laser fiber and a laser settin g of 0.8 joules and between 8 and 12 hertz, I quickly fragmented the stone into dust small enough to pass less than 1 mm in diameter. Once the stone was completely fragmented, I then removed the laser fiber and passed a [employer] guidewire via the ureteroscope under direct vision up the ureter and coile d it within the upper pole of the kidney alongside the indwelling safety wire as visualized fluorosco pically. I then removed the semi-rigid ureteroscope and passed over the Bentson guidewire a ureteral access sheath. This was placed into the mid ureter, and then over the Bentson guidewire, I passed t he flexible ureteroscope into the upper pole of the kidney as observed fluoroscopically. The Bentson wire was removed, and I then surveyed the calyces of the kidney until I encountered the radiopaque s tone within the mid pole posterior calyx. This was a 12.[address] seen [address] scan. Then using t he same 200 nanometer laser fiber this time with laser settings power increased to 0.8 joules and bet ween 15 and 20 hertz ultimately increasing to 1 joule and 20 hertz, I was able to fragment that stone into dust that was about 1 mm or smaller in diameter. This did exhaust the laser fiber, but since t he stone fragments were all submillimeter inside, I then surveyed into the renal pelvis and the remai nder of the calyces before surveying down the proximal ureter. There a significant burden of stone f ragments had coagulated in a form of steinstrasse; so I utilized a 2.4-Canadian basket in order to gras p the stones and deliver it via the ureteral access sheath. These stone fragments were collected and sent for chemical analysis. I then surveyed the proximal down through the mid and distal ureter ens uring any significantly sized stone fragments were removed along the way and removing the ureteral ac cess sheath. I then back-loaded the cystoscope over the indwelling safety wire and passed a 6-Canadian by 26 cm double-J left ureteral stent with a coil observed fluoroscopically in the upper pole and 1 cystoscopically formed within the bladder under direct vision. I then decompressed his bladder fluid and urine and removed additional calculi present there. The patient was then taken out of the litho ramez position, awakened from general anesthesia, transferred to a stretcher, and then transferred to the recovery room in good condition. Complications: None. Discharge Disposition: He should follow up in the Urology Clinic within about 2-3 weeks' time for cy stoscopy and left ureteral stent extraction. He will be discharged with a 7-day prescription for Elio trim Double Strength tablets and [place] for pain management. He will subsequently require 24-hour uri ne metabolic profile assessment given the significant burden of stone to assess his stone forming ris ks, potential and decrease his future risk of stone formation. WR/MODL Voice ID: [id number] Report ID: [id number]
[2021-12-15 12:30] VITALS: BP 113/71
== END 2021-12-15 11:35 | disposition home or self-care (01) ==
LOC: OR 06:17
PROVIDERS: ATTEND Urology
PROC: 0T778DZ Dilation of Left Ureter with Intraluminal Device, Via Natural or Artificial Opening Endoscopic (ICD-10-PCS; 2021-12-15)
PROC: 0TC78ZZ Extirpation of Matter from Left Ureter, Via Natural or Artificial Opening Endoscopic (ICD-10-PCS; principal; 2021-12-15 07:30)
DX: N20.2 Calculus of kidney with calculus of ureter (principal); Z20.822 Contact with and (suspected) exposure to COVID-19; I10 Essential (primary) hypertension; E78.5 Hyperlipidemia, unspecified; R10.32 Left lower quadrant pain; E03.9 Hypothyroidism, unspecified; Z87.891 Personal history of nicotine dependence
CPT/HCPCS: 87088; 87086; 36415; 85610; 88300; 82360; 74450; 51610; 87811; 52356; J2704; J2710; J1580; J2250; J3010; J1100; J1170; J7120; J2405; J0290